=== PATIENT | female | born 1940 | race American Indian/Alaskan Native ===

== ENCOUNTER 2017-06-06 10:53 | Outpatient (CLI) | payer MEDICARE ==
--- NOTE | 2017-06-07 09:14 | Mammography Report ---
BILATERAL DIGITAL SCREENING MAMMOGRAM with CAD: 06/06/17 10:53:00 CLINICAL: Routine screening. COMPARISON:10/04/13 FINDINGS: The breasts are mostly fatty with a few bilateral residual retroareolar fibroglandular densities. No mass, architectural distortion or suspicious calcifications. IMPRESSION: No mammographic evidence of malignancy. BI-RADS CATEGORY: 1 - - Negative RECOMMENDATION: Routine mammographic screening in one year. COMMENT: Patient follow-up letters are generated by our [employer] application.
== END 2017-06-06 10:54 | disposition home or self-care (01) ==
LOC: SPVWC 10:53
DX: Z12.31 Encounter for screening mammogram for malignant neoplasm of breast (principal)
CPT/HCPCS: 77067

== ENCOUNTER 2019-07-12 09:39 | Outpatient (CLI) | payer MEDICARE ==
--- NOTE | 2019-07-12 10:35 | Mammography Report ---
DIGITAL SCREENING MAMMOGRAM WITH CAD, 07/12/2019 INDICATION: Routine screening mammography. TECHNIQUE: Digital bilateral 2D mammography was obtained in the craniocaudal and mediolateral obliq ue projections. This examination was interpreted with the benefit of Computer-Aided Detection analysi s. COMPARISON: Prior mammogram 09/25/2012 FINDINGS: Breast Density: There are scattered areas of fibroglandular density. There is no evidence of dominant mass, suspicious calcifications or architectural distortion in eithe r breast. There has been no significant change compared with the prior examination. IMPRESSION: Follow up recommendation: Routine yearly BI-RADS Category 1: Negative. A "normal" or negative report should not discourage follow up or biopsy of a clinically significant f inding. A written summary of these findings will be mailed to the patient. The patient will be entered into a mammography reporting system which will generate a reminder letter for the patient's next appointmen t at the appropriate interval. The [employer] recommends yearly mammograms starting at age 40 and continuing as l cristo as a woman is in good health. Breast MRI is recommended for women with an approximate 20-25% or greater lifetime risk of breast cancer, including women with a strong family history of breast or ova estela cancer or who have been treated for Hodgkin's disease. Signer Name: Monserrat Bynum MD Signed: 07/12/2019 10:31 AM Workstation Name: [id number]
--- NOTE | 2019-07-12 11:36 | XRay Report ---
XR hip 2-3V LT INDICATION / CLINICAL INFORMATION: HIP PAIN M25.559. COMPARISON: None available. FINDINGS: BONES/JOINT(S): No acute fracture or subluxation. 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 SOFT TISSUES: No significant abnormality. ADDITIONAL FINDINGS: None. Signer Name: Chuy Hedrick MD Signed: 07/12/2019 11:32 AM Workstation Name: [id number]
== END 2019-07-12 09:40 | disposition home or self-care (01) ==
LOC: SPVWC 09:39
PROVIDERS: ATTEND Family Medicine
DX: Z12.31 Encounter for screening mammogram for malignant neoplasm of breast (principal); M25.559 Pain in unspecified hip; M16.12 Unilateral primary osteoarthritis, left hip
CPT/HCPCS: 77067

== ENCOUNTER 2020-02-25 09:33 | Outpatient (CLI) | payer MEDICARE ==
--- NOTE | 2020-02-26 09:16 | Mammography Report ---
DEXA BONE DENSITY SCAN INDICATION / CLINICAL INFORMATION: OSTEOPOROSIS M81.0. 79 years Female COMPARISON: 10/04/2013. LUMBAR SPINE, L1-L4: - Bone mineral density (BMD) = 1.166 g/cm2. - T-score = 0.1 - Z-score = 3.1 Change (%) since most recent prior (if available): Increase of 1.6% LEFT HIP, TOTAL : - Bone mineral density (BMD) = 1.053 g/cm2. - T-score = 0.1 - Z-score = 1.7 Change (%) since most recent prior (if available): Increase of 3.6% IMPRESSION: 1. WHO Classification: Normal bone density. Fracture Risk: Not Increased. BMD Reporting Guidelines (ISCD, 2015) BMD Reporting in Postmenopausal Women and in Men Age 50 and Older * T-scores are preferred. * The WHO densitometric classification is applicable. BMD Reporting in Females Prior to Menopause and in Males Younger Than Age 50 * Z-scores, not T-scores, are preferred. This is particularly important in children. * A Z-score of -2.0 or lower is defined as below the expected range for age, and a Z-score above -2. 0 is within the expected range for age. * Osteoporosis cannot be diagnosed in men under age 50 on the basis of BMD alone. * The WHO diagnostic criteria may be applied to women in the menopausal transition. http://www.iscd.org/official-positions/8302-syrq-jxwydygq-positions-adult/ regional Signer Name: Juaquin Phillip MD Signed: 02/26/2020 9:11 AM Workstation Name: [id number]
== END 2020-02-25 09:34 | disposition home or self-care (01) ==
LOC: SPVWC 09:33
PROVIDERS: ATTEND Family Medicine
DX: M81.0 Age-related osteoporosis without current pathological fracture (principal)
CPT/HCPCS: 77080